=== PATIENT | female | born 1965 | race Caucasian/White ===

== ENCOUNTER 2024-07-11 11:08 | Emergency (ER) | payer OTHER ==
[~2024-07-11] VITALS: Ht 157.5 cm; Wt 88.5 kg
[2024-07-11 11:19] VITALS: BP 135/81
[2024-07-11] MEDS ORDERED: EUTHYROX125 MC1 PO (11:57)
[2024-07-11] MEDS ORDERED: ATOR10 PO (11:57)
[2024-07-11] MEDS ORDERED: ZOLOFT25 MG PO (11:58)
== END 2024-07-11 12:29 | disposition home or self-care (01) ==
LOC: ER 11:08
DX: S52.501A Unspecified fracture of the lower end of right radius, initial encounter for closed fracture (principal); W01.0XXA Fall on same level from slipping, tripping and stumbling without subsequent striking against object, initial encounter
CPT/HCPCS: 29125; 73110; 99283-25

== ENCOUNTER 2025-08-26 15:12 | Emergency (ER) | payer BC, OTHER ==
[~2025-08-26] VITALS: Ht 167.6 cm; Wt 74.8 kg
[~2025-08-26 15:12] MED LIST changes: -ONDA4ODT MM; -TAMS.4ER PO
[2025-08-26 18:18] LABS: Source, Urine Clean Catch
[2025-08-26 18:23] LABS: Glucose Qualitative, Urine Neg (Neg); Ketones, Urine Neg (Neg); Leukocyte Esterase, Urine Neg (Neg); Protein, Urine 2+ (Neg); Specific Gravity, Urine 1.010 (1.003-1.022); Urobilinogen, Urine 3+ (Normal)
[2025-08-26 18:33] LABS: Bilirubin, Urine 3+ (Neg); Color, Urine Orange (P-Yellow)
[2025-08-26 20:34] LABS: Source, Urine Straight Cath
[2025-08-26 20:41] LABS: Glucose Qualitative, Urine Neg (Neg); Ketones, Urine Neg (Neg); Leukocyte Esterase, Urine Neg (Neg); Protein, Urine 2+ (Neg); Specific Gravity, Urine 1.015 (1.003-1.022); Urobilinogen, Urine 3+ (Normal)
[2025-08-26 20:45] LABS: Bilirubin, Urine 3+ (Neg); Color, Urine Orange (P-Yellow)
[2025-08-26 21:01] LABS: White Blood Cells, Urine 0-2 /hpf (0-5)
[2025-08-26] MEDS ORDERED: Ondansetron HCl 2 MG / ML 2ML Vial IV ONE (21:40)
[2025-08-26] MEDS ORDERED: Ketorolac Tromethamine 15mg Vial IV ONE (21:40)
[2025-08-26] MEDS ORDERED: TAMS.4ER PO (21:44)
[2025-08-26] MEDS ORDERED: ONDA4ODT MM (21:44)
[2025-08-26] MEDS ORDERED: RX Prepack 2 Tabs Ondansetron ODT 4MG UD ONE (21:45)
[2025-08-26 22:00] VITALS: BP 145/74
== END 2025-08-26 22:07 | disposition home or self-care (01) ==
LOC: ER 15:12
PROVIDERS: Student in an Organized Health Care Education/Training Program
DX: N13.2 Hydronephrosis with renal and ureteral calculous obstruction (principal); Z79.899 Other long term (current) drug therapy; Z88.0 Allergy status to penicillin
CPT/HCPCS: 74177; 81001; 87086; 96374-59; 96375; 99285-25; A9270; J1885; J2405; P9612; Q9967

== ENCOUNTER → 2025-08-26 | Outpatient (CLI) | payer OTHER ==
[~2025-08-26] MED LIST: ATOR10 PO; EUTHYROX125 MC1 PO; ONDA4ODT MM; TAMS.4ER PO; ZOLOFT25 MG PO
[2025-08-26 15:06] LABS: BASOPHILS ABSOLUTE AUTO 0.06 K/mm3 (0.00-0.23); BASOPHILS PERCENT AUTO 1 % (0-2); EOSINOPHILS ABSOLUTE AUTO 0.10 K/mm3 (0.00-0.68); EOSINOPHILS PERCENT AUTO 1 % (0-6); Hematocrit 41.0 % (33.0-51.0); Hemoglobin 14.1 g/dL (11.5-16.0); IMMATURE GRAN ABSOLUTE AUTO 0.04 K/mm3 (0.00-0.10); IMMATURE GRAN PERCENT AUTO 0 % (0-1); LYMPHOCYTES ABSOLUTE AUTO 4.33 K/mm3 (0.84-5.20); LYMPHOCYTES PERCENT AUTO 39 % (21-46); MONOCYTES ABSOLUTE AUTO 0.54 K/mm3 (0.16-1.47); MONOCYTES PERCENT AUTO 5 % (4-13); Mean Corpuscular HGB Conc 34.4 g/dL (31.5-36.5); Mean Corpuscular Volume 87 fL (80-100); NEUTROPHILS ABSOLUTE AUTO 6.07 K/mm3 (1.96-9.15); NEUTROPHILS PERCENT AUTO 55 % (41-73); NRBC ABSOLUTE 0.00 K/mm3 (0.00-0.02); NRBC Auto 0.0 /100 WBC (0.0-0.2); Platelet Count 281 K/mm3 (150-400); RDW Coefficient Variation 12.7 % (11.7-14.2); RDW Standard Deviation 40.2 fL (35.1-46.3)
[2025-08-26 15:19] LABS: Alanine Aminotransfer (ALT/SGP 51.0 U/L (12-78); Albumin, Blood 4.1 g/dL (3.4-5.0); Albumin/Globulin Ratio 1.1 (0.8-1.8); Anion Gap 17.0 mmol/L (3-11); Aspartate Aminotrans (AST/SGOT 35.0 U/L (12-37); Bilirubin, Total 0.8 mg/dL (0.1-1.0); Blood Urea Nitrogen 17.0 mg/dL (8-24); CO2, Blood 25.0 mmol/L (21-32); Calcium, Blood 9.7 mg/dL (8.5-10.1); Chloride, Blood 105.0 mmol/L (98-108); Creatinine, Blood 1.38 mg/dL (0.40-1.00); Globulin, Blood 3.7 g/dL (2.2-4.0); Glucose, Blood 134.0 mg/dL (70-99); Potassium, Blood 3.6 mmol/L (3.5-5.5); Sodium, Blood 143.0 mmol/L (136-145); Total Protein, Blood 7.8 g/dL (6.4-8.2)
== END ==
LOC: LAB SHORT 15:02 → LAB 15:02
PROVIDERS: Physician Assistant
DX: R10.31 Right lower quadrant pain (principal); N39.0 Urinary tract infection, site not specified
CPT/HCPCS: 80053; 85025; 87086